=== PATIENT | male | born 1970 | race Caucasian/White ===

== ENCOUNTER 2020-04-19 16:54 | Outpatient (REF) | payer OTHER, SELFPAY | END 2020-04-19 16:55 | disposition home or self-care (01) | LOC: HO.LAB 16:54 | PROVIDERS: Visit Provider Internal Medicine | DX: Z20.828 Contact with and (suspected) exposure to other viral communicable diseases (principal) | CPT/HCPCS: 87635 ==

== ENCOUNTER 2020-05-01 14:20 | Outpatient (REF) | payer OTHER, SELFPAY | END 2020-05-01 14:21 | disposition home or self-care (01) | LOC: HO.LAB 14:20 | PROVIDERS: Visit Provider Internal Medicine | DX: Z20.828 Contact with and (suspected) exposure to other viral communicable diseases (principal) | CPT/HCPCS: C9803; U0003 ==

== ENCOUNTER → 2021-07-03 08:58 | Outpatient (BNVA) | payer OTHER, SELFPAY | PROVIDERS: Visit Provider Physician Assistant Medical | DX: S46.912A Strain of unspecified muscle, fascia and tendon at shoulder and upper arm level, left arm, initial encounter (principal); X50.3XXA Overexertion from repetitive movements, initial encounter | CPT/HCPCS: 73030; 99204 ==

== ENCOUNTER → 2021-07-10 09:09 | Outpatient (BNVA) | payer OTHER, SELFPAY | PROVIDERS: Visit Provider Physician Assistant | DX: S46.912A Strain of unspecified muscle, fascia and tendon at shoulder and upper arm level, left arm, initial encounter (principal); X58.XXXA Exposure to other specified factors, initial encounter | CPT/HCPCS: 99214 ==

== ENCOUNTER → 2021-07-17 10:06 | Outpatient (BNVA) | payer OTHER, SELFPAY | PROVIDERS: Visit Provider Internal Medicine | DX: S46.012A Strain of muscle(s) and tendon(s) of the rotator cuff of left shoulder, initial encounter (principal); X50.3XXA Overexertion from repetitive movements, initial encounter | CPT/HCPCS: 99213 ==

== ENCOUNTER 2021-07-23 07:53 | Outpatient (RCR) | payer OTHER, SELFPAY ==
--- NOTE | 2021-07-23 09:25 | MHC.PT.EP ---
[facility] [place] Office [place] Office [place] Office [address] Kingsley Gomez 140 [facility] [phone] F: [phone] F: [phone] F: [phone] F: [phone] Physical Therapy Plan of Care Date of Evaluation: Date of Surgery: Diagnosis: LEFT ROTATOR CUFF INJURY Assessment: 50 YO MALE REF TO PT W H/O 07/02/21 LEFT SH INJURY. HE IS LEFT HAND DOMINANT, HE WORKS FULL-TIME A [employer] AND HAS BEEN OOW SINCE INJURY- SCHED FOR AN MRI 07/24/21-> OBJECTIVE FINDINGS: (+) LEFT SH APPREHENSION; LIMITED ROM LEFT SH, DECR POST RC/ SCAP STRENGTH, (+) NEER'S SIGN LEFT, AND PAIN IN LEFT ANT SH GIRDLE. 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 PER Pt, HE HAS A Rt UE DEFECT WHICH IS VERY FUNCTIONAL. HE IS A GOOD PT CANDIDATE TO ADDRESS THE ABOVE FINDINGS , MANAGE PAIN AND DEV HEP/ SELF-SX MGMT TECHN . 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 Manual therapy to restore motion and function. Therapeutic exercise to improve strength and flexibility. Neuromuscular re-education for posture and balance. Therapeutic activities to return to functional activities of daily living. Electronically signed by: Latrice Joe PT Please sign and return to therapist. Thank you for your referral.
== END 2021-08-22 14:05 | disposition home or self-care (01) ==
LOC: HO.PT 07:53
PROVIDERS: Visit Provider Physician Assistant Medical
DX: S46.002D Unspecified injury of muscle(s) and tendon(s) of the rotator cuff of left shoulder, subsequent encounter (principal)
CPT/HCPCS: 97110; 97161

== ENCOUNTER 2021-07-24 08:50 | Outpatient (REF) | payer OTHER, SELFPAY ==
--- NOTE | ~2021-07-24 | MR_ITS ---
EXAMINATION: MRI SHOULDER WITHOUT CONTRAST, LEFT CLINICAL INFORMATION: Left shoulder pain with movement and when sleeping. Lifting injury 2 weeks ago. Instability. Evaluate for a labral or rotator cuff tendon tear. COMPARISON: Left shoulder radiographs dated 07/03/2021. TECHNIQUE: Multisequence MR imaging of the left shoulder was obtained without contrast on a high-field strength scanner. FINDINGS: ROTATOR CUFF: Mild supraspinatus and infraspinatus tendinosis. There is insertional intrasubstance partial tearing of the infraspinatus tendon measuring approximately 0.5 x 0.5 cm. No extension to the articular or bursal surfaces. Moderate subscapularis tendinosis with distal articular surface partial tearing measuring 2.6 cm in ML dimension. No muscle atrophy or fatty infiltration. BICEPS: Normal. CORACOACROMIAL ARCH: The undersurface of the acromion is flat with no subacromial spur. Moderate acromioclavicular osteoarthritis. Mild fluid and edema within the subacromial-subdeltoid bursa, consistent with mild bursitis. LABRUM/CAPSULE: Nondisplaced undersurface tear through the posterosuperior labrum. Fraying/tearing throughout the periphery of the superior, posterosuperior, posterior, and inferior labrum. Intact joint capsule. GLENOHUMERAL JOINT/MARROW: Humeral head articular cartilage thinning with an area of bqod-afkk-slbgaafre loss superomedially measuring up to 1.7 cm. Small marginal osteophytes. Small joint effusion. MR/MR shoulder LT wo con IMPRESSION: 1. Mild supraspinatus and infraspinatus tendinosis with insertional intrasubstance partial tearing of the infraspinatus tendon measuring 0.5 x 0.5 cm. 2. Moderate subscapularis tendinosis with distal articular surface partial tearing measuring 2.6 cm in ML dimension. 3. Moderate acromioclavicular osteoarthritis. 4. Mild subacromial-subdeltoid bursitis. 5. Nondisplaced undersurface tear through the posterosuperior labrum with diffuse peripheral labral fraying/tearing. 6. Mild glenohumeral osteoarthritis and small joint effusion.
== END 2021-07-24 08:51 | disposition home or self-care (01) ==
LOC: HO.MRI 08:50
PROVIDERS: Visit Provider Internal Medicine
DX: M25.312 Other instability, left shoulder (principal)
CPT/HCPCS: 73221

== ENCOUNTER → 2021-07-25 09:03 | Outpatient (BNVA) | payer OTHER, SELFPAY | PROVIDERS: Visit Provider Physician Assistant Medical | DX: S46.012A Strain of muscle(s) and tendon(s) of the rotator cuff of left shoulder, initial encounter (principal); S43.432A Superior glenoid labrum lesion of left shoulder, initial encounter; X58.XXXA Exposure to other specified factors, initial encounter | CPT/HCPCS: 99213 ==

== ENCOUNTER 2021-08-08 16:47 | Emergency (ER) | payer MEDICARE, SELFPAY ==
--- NOTE | 2021-08-08 | ECG_ITS ---
Test Reason : CHEST PAIN Blood Pressure : / mmHG Vent. Rate : 099 BPM Atrial Rate : 099 BPM P-R Int : 126 ms QRS Dur : 094 ms QT Int : 344 ms P-R-T Axes : 048 023 032 degrees QTc Int : 441 ms Normal sinus rhythm Normal ECG No previous ECGs available Referred By: Generic ED Physician Electronically Signed By:John Mendoza
--- NOTE | ~2021-08-08 | XR_ITS ---
EXAMINATION: PORTABLE CHEST 1 VIEW CLINICAL INFORMATION: chest pain . COMPARISON: 10/21/2006. TECHNIQUE: Portable frontal view of the chest was obtained. FINDINGS: The lungs are well expanded. No focal infiltrate, effusion, edema, or pneumothorax. Cardiac and mediastinal silhouettes are within normal limits for technique. No acute bony abnormality seen. XR/XR chest 1V IMPRESSION: No evidence of acute disease.
[2021-08-08 16:49] VITALS: BP 151/91; PULSE 103; RESP 15; TEMP 36.7; O2SAT 97; BMI 28.4
[2021-08-08 17:09] LABS: Glucose, Whole Blood 143 mg/dL (60-115)
[2021-08-08 17:11] LABS: MANUAL DIFF FLAG NO
[2021-08-08 17:13] LABS: Basophils Percent Auto 0.1 % (0-2); Hematocrit 43.7 % (42.0-52.0); Hemoglobin 15.2 g/dl (14.0-18.0); Imm Gran Abs Auto 0.03 X10*3/uL (0.00-0.03); Imm Gran Pct Auto 0.3 % (0.0-0.4); Lymphocytes Absolute Auto 1.4 X10*3/uL (1.2-4.9); Mean Corpuscular HGB Conc 34.8 g/dl (31.0-36.0); Mean Corpuscular Hemoglobin 30.6 pg (27.0-33.0); Mean Corpuscular Volume 87.9 fL (80.0-98.0); Mean Platelet Volume 9.2 fL (9.4-12.4); Monocytes Absolute Auto 0.6 X10*3/uL (0.1-1.2); Monocytes Percent Auto 5.8 % (2-11); Neutrophils Absolute Auto 7.7 x10*3/uL (2.0-8.3); Neutrophils Percent Auto 79.8 % (45-73); Platelet Count 263 X10*3/uL (160-400); Red Blood Count 4.97 X10*6/uL (4.60-5.80); White Blood Count 9.6 X10*3/uL (4.8-10.8)
[2021-08-08 17:36] LABS: Alanine Aminotransferase 53 U/L (0-40); Albumin Level 4.4 g/dL (3.5-5.0); Alkaline Phosphatase 86 U/L (39-117); Anion Gap 14 (12-20); Aspartate Amino Transferase 46 U/L (5-37); Bilirubin Total < 0.2 mg/dL (0.0-1.0); Blood Urea Nitrogen 15 mg/dL (9-16); Calcium 9.8 mg/dL (8.4-10.2); Carbon Dioxide 21 mmol/L (22-29); Chloride 105 mmol/L (96-108); Creatinine Clr Calc Pharmacy 87.5; Estimated Glomerular Filt Rate > 60; Glucose Random 141 mg/dL (60-115); Potassium 3.9 mmol/L (3.3-5.1); Sodium 136 mmol/L (135-145); Total Protein 8.4 g/dL (6.5-8.0)
[2021-08-08 17:41] LABS: Troponin-I High Sensitivity 18.2 ng/L (<3.5-35.0)
--- NOTE | 2021-08-09 00:27 | ED_ITS ---
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 Mode of arrival: ambulatory Limitations: no limitations History of Present Illness HPI narrative: lasted 5 minutes states father and brother have heart problems but not entirely sure what they are MD complaint: chest pain (dizziness) Onset (ago): hour(s) (4pm on 08/08/21) Timing of current episode: now resolved Prior episodes: No Onset: during rest Pain location: substernal Pain radiation: none Severity: moderate Quality: heaviness Relieving factors: nothing Exacerbating factors: nothing Associated symptoms: dyspnea and palpitations Treatment prior to arrival: none Related Data Previous Rx's Medication Instructions Recorded aspirin 81 mg tablet,delayed 81 mg PO DAILY #30 tab 08/09/21 release Allergies Allergy/AdvReac Type Severity Reaction Status Date / Time No Known Allergies Allergy Verified 08/08/21 16:54 Review of Systems Review of Systems: Constitutional : No Weight loss, No Fever, No Chills ENT/Mouth : No sore throat, No Rhinorrhea Eyes: No Eye Pain, No Swelling Cardiovascular : pos Chest Pain, pos SOB, no Dyspnea on Exertion, No Orthopnea, No Edema, No Palpitations Respiratory : No Cough, No Sputum Gastrointestinal : no Nausea, No Vomiting, No Diarrhea, No abdominal Pain, No Hematochezia, No Melena Genitourinary : No Dysuria, No Urinary Frequency Musculoskeletal : No joint pain, No Myalgias, No Joint Swelling Skin : No Skin Lesions, No rash Neuro : No Weakness, No Numbness, pos Dizziness, No Headache Psych : No Anxiety/Panic, No Depression Heme/Lymph: No Bruising, No Lymphadenopathy Endocrine : No Polyuria, No Polydipsia All other systems reviewed and are negative [facility] Past Medical History Attestation statement: The following information was validated with the patient. Medical History Patient denies medical problems Social History Social History Patient Tobacco Use Status: Never used Tobacco Advance Directives: No Advance Directives Information Provided: No Physical Exam Vital Signs: Vital Signs: Last Vital Signs Temp 98.0 F 08/08/21 16:49 Pulse 56 08/09/21 02:06 Resp 18 08/09/21 02:06 BP 127/88 08/09/21 02:06 Pulse Ox 96 08/09/21 02:06 BMI result Body Mass Index 28.4 Appearance: Alert. Oriented X3. No acute distress. Eyes: Pupils equal, round and reactive to light. ENT: Pharynx normal. Neck: Normal inspection. Neck supple. CVS: Normal heart rate and rhythm. Pulses normal. Respiratory: No respiratory distress. Breath sounds normal. Abdomen: Soft and non-tender. Skin: Skin warm and dry. Normal skin color. Normal skin turgor. Extremities: No lower extremity edema. No calf ttp Neuro: Oriented X 3. No motor deficit. No sensory deficit. Course Course Course Narrative: ddimer normal repeat trop under ischemic range there is increase but at 9 hour monik is is below ischemic range for males and he has no chest pain now. will repeat EKG unchanged EKG, repeat trop no sig rise at 10 hour monik at this time will send home with precautions and outpatient stress test follow up MDM - Chest Pain MDM Narrative Medical decision making narrative: 50 yo male with no known PMH states he goes to the doctor regularly, he appears fit and works as a [employer] he doesn't smoke - he notes his father and brother have heart issues but not entirely sure what that means. At this time he was cutting wood and noted chest heaviness and dizziness at 4pm lasting 5 minutes. He has no pain now and equal pulses doubt dissection. Will obtain ddimer and troponin x 2, EKG nonischemic in triage. Will need to see a package collector if workup negative given fam hx should have outpatient stress and ECHO Lab Data Result diagrams: 08/08/21 17:04 08/08/21 17:04 Labs: Lab Results 08/08/21 08/08/21 08/08/21 Range/Units 17:00 17:04 17:04 WBC 9.6 (4.8-10.8) X10*3/uL RBC 4.97 (4.60-5.80) X10*6/uL Hgb 15.2 (14.0-18.0) g/dl Hct 43.7 (42.0-52.0) % MCV 87.9 (80.0-98.0) fL MCH 30.6 (27.0-33.0) pg MCHC 34.8 (31.0-36.0) g/dl RDW 12.0 (11.0-16.0) % Plt Count 263 (160-400) X10*3/uL MPV 9.2 L (9.4-12.4) fL Immature Gran % (Auto) 0.3 (0.0-0.4) % Neut % (Auto) 79.8 H (45-73) % Lymph % (Auto) 14.0 L (20-40) % [place] % (Auto) 5.8 (2-11) % Eos % (Auto) 0.0 (0-4) % Baso % (Auto) 0.1 (0-2) % Lymph # (Auto) 1.4 (1.2-4.9) X10*3/uL [place] # (Auto) 0.6 (0.1-1.2) X10*3/uL Eos # (Auto) 0.0 (0.0-0.4) X10*3/uL Baso # (Auto) 0.0 (0.0-0.2) X10*3/uL Abs Immat Gran (auto) 0.03 (0.00-0.03) X10*3/uL Absolute Neuts (auto) 7.7 (2.0-8.3) x10*3/uL Absolute Nucleated RBC 0.000 (0.0-0.012) X10*3/uL Nucleated RBC % (auto) 0.0 (0.0-0.2) /100WBC D-Dimer High Sensitivty NG/ML Sodium 136 (135-145) mmol/L Potassium 3.9 (3.3-5.1) mmol/L Chloride 105 (96-108) mmol/L Carbon Dioxide 21 L (22-29) mmol/L Anion Gap 14 (12-20) BUN 15 (9-16) mg/dL Creatinine 1.07 (0.5-1.4) mg/dL Estim Creat Clear Calc 87.5 Estimated GFR > 60 POC Glucose 143 H (60-115) mg/dL Random Glucose 141 H (60-115) mg/dL Calcium 9.8 (8.4-10.2) mg/dL Total Bilirubin < 0.2 (0.0-1.0) mg/dL AST 46 H (5-37) U/L ALT 53 H (0-40) U/L Alkaline Phosphatase 86 (39-117) U/L Troponin I High Sens (<3.5-35.0) ng/L Total Protein 8.4 H (6.5-8.0) g/dL Albumin 4.4 (3.5-5.0) g/dL 08/08/21 08/09/21 08/09/21 Range/Units 17:04 00:35 00:35 WBC (4.8-10.8) X10*3/uL RBC (4.60-5.80) X10*6/uL Hgb (14.0-18.0) g/dl Hct (42.0-52.0) % MCV (80.0-98.0) fL MCH (27.0-33.0) pg MCHC (31.0-36.0) g/dl RDW (11.0-16.0) % Plt Count (160-400) X10*3/uL MPV (9.4-12.4) fL Immature Gran % (Auto) (0.0-0.4) % Neut % (Auto) (45-73) % Lymph % (Auto) (20-40) % [place] % (Auto) (2-11) % Eos % (Auto) (0-4) % Baso % (Auto) (0-2) % Lymph # (Auto) (1.2-4.9) X10*3/uL [place] # (Auto) (0.1-1.2) X10*3/uL Eos # (Auto) (0.0-0.4) X10*3/uL Baso # (Auto) (0.0-0.2) X10*3/uL Abs Immat Gran (auto) (0.00-0.03) X10*3/uL Absolute Neuts (auto) (2.0-8.3) x10*3/uL Absolute Nucleated RBC (0.0-0.012) X10*3/uL Nucleated RBC % (auto) (0.0-0.2) /100WBC D-Dimer High Sensitivty 182 NG/ML Sodium (135-145) mmol/L Potassium (3.3-5.1) mmol/L Chloride (96-108) mmol/L Carbon Dioxide (22-29) mmol/L Anion Gap (12-20) BUN (9-16) mg/dL Creatinine (0.5-1.4) mg/dL Estim Creat Clear Calc Estimated GFR POC Glucose (60-115) mg/dL Random Glucose (60-115) mg/dL Calcium (8.4-10.2) mg/dL Total Bilirubin (0.0-1.0) mg/dL AST (5-37) U/L ALT (0-40) U/L Alkaline Phosphatase (39-117) U/L Troponin I High Sens 18.2 32.3 D (<3.5-35.0) ng/L Total Protein (6.5-8.0) g/dL Albumin (3.5-5.0) g/dL 08/09/21 Range/Units 02:15 WBC (4.8-10.8) X10*3/uL RBC (4.60-5.80) X10*6/uL Hgb (14.0-18.0) g/dl Hct (42.0-52.0) % MCV (80.0-98.0) fL MCH (27.0-33.0) pg MCHC (31.0-36.0) g/dl RDW (11.0-16.0) % Plt Count (160-400) X10*3/uL MPV (9.4-12.4) fL Immature Gran % (Auto) (0.0-0.4) % Neut % (Auto) (45-73) % Lymph % (Auto) (20-40) % [place] % (Auto) (2-11) % Eos % (Auto) (0-4) % Baso % (Auto) (0-2) % Lymph # (Auto) (1.2-4.9) X10*3/uL [place] # (Auto) (0.1-1.2) X10*3/uL Eos # (Auto) (0.0-0.4) X10*3/uL Baso # (Auto) (0.0-0.2) X10*3/uL Abs Immat Gran (auto) (0.00-0.03) X10*3/uL Absolute Neuts (auto) (2.0-8.3) x10*3/uL Absolute Nucleated RBC (0.0-0.012) X10*3/uL Nucleated RBC % (auto) (0.0-0.2) /100WBC D-Dimer High Sensitivty NG/ML Sodium (135-145) mmol/L Potassium (3.3-5.1) mmol/L Chloride (96-108) mmol/L Carbon Dioxide (22-29) mmol/L Anion Gap (12-20) BUN (9-16) mg/dL Creatinine (0.5-1.4) mg/dL Estim Creat Clear Calc Estimated GFR POC Glucose (60-115) mg/dL Random Glucose (60-115) mg/dL Calcium (8.4-10.2) mg/dL Total Bilirubin (0.0-1.0) mg/dL AST (5-37) U/L ALT (0-40) U/L Alkaline Phosphatase (39-117) U/L Troponin I High Sens 34.3 (<3.5-35.0) ng/L Total Protein (6.5-8.0) g/dL Albumin (3.5-5.0) g/dL ECG Data ECG #1: Attestation: I personally reviewed and interpreted this ECG as follows: ECG interpretation date: 08/09/21 ECG interpretation time: 00:28 Interpretation: Rate: 99 Rhythm: NSR [place]: normal Normal P waves. Normal ASIM. Normal QRS complex. ST T wave : normal no ABIGAIL qTC: normal prior studies: no acute ischemia The study has been interpreted contemporaneously by me. EKG #2 Rate: 59 Rhythm: sinus bradycardia [place]: normal Normal P waves. Normal ASIM. Normal QRS complex. ST T wave : normal no ABIGAIL qTC: normal prior studies: no acute ischemia The study has been interpreted contemporaneously by me. Discharge Plan Discharge Clinical Impression: Chest pain Qualifiers: Chest pain type: unspecified Qualified Code(s): R07.9 - Chest pain, unspecified Patient Disposition: Home, Self-Care Instructions: Chest Pain (ED) Additional Instructions: return to ED for any worsening symptoms or concerns no strenuous exercise until you see a package collector. please take 81mg aspirin daily. if you experience chest pain seek medical care. no lulu ejercicio extenuante hasta que александр a un cardi?logo. tome 81 mg de aspirina al d?a. si experimenta dolor en el pecho busque atenci?n m?dica Prescriptions: New aspirin 81 mg tablet,delayed release (DR/EC) 81 mg PO DAILY Qty: 30 0RF Referrals: John Mendoza MD [Physician] - 1 week (prueba de esfuerzo ambulatoria) Stand Alone Forms: Work/School Release Print Language: Jamaican
[2021-08-09 00:39] VITALS: BP 127/95; PULSE 71; RESP 16; O2SAT 99
[2021-08-09 00:47] LABS: D Dimer High Sensitivity 182 NG/ML
[2021-08-09 01:02] LABS: Troponin-I High Sensitivity 32.3 ng/L (<3.5-35.0)
--- NOTE | 2021-08-09 01:07 | ECG_ITS ---
Test Reason : DIZZINESS Blood Pressure : / mmHG Vent. Rate : 059 BPM Atrial Rate : 059 BPM P-R Int : 142 ms QRS Dur : 096 ms QT Int : 414 ms P-R-T Axes : 025 032 034 degrees QTc Int : 409 ms Sinus bradycardia Incomplete right bundle branch block Borderline ECG When compared with ECG of 08-AUG-2021 16:55, Vent. rate has decreased BY 40 BPM Referred By: Fe Dalal Electronically Signed By:John Mendoza
[2021-08-09 02:06] VITALS: BP 127/88; PULSE 56; RESP 18; O2SAT 96
[2021-08-09 02:40] LABS: Troponin-I High Sensitivity 34.3 ng/L (<3.5-35.0)
== END 2021-08-09 03:11 | disposition home or self-care (01) ==
PROVIDERS: Emergency Provider Emergency Medicine
DX: R07.9 Chest pain, unspecified (principal)
CPT/HCPCS: 36415; 71045; 80053; 82947; 84484; 85025; 85379; 93005; 99283; 99284

== ENCOUNTER 2022-08-18 09:10 | Emergency (ER) | payer MEDICARE, SELFPAY ==
[2022-08-18 09:12] VITALS: BP 128/75; PULSE 75; RESP 18; TEMP 36.5; O2SAT 96; BMI 30.4
--- NOTE | 2022-08-18 09:46 | ED_ITS ---
HPI - Back Pain/Injury General Chief Complaint: Back Pain/Injury Stated Complaint: Lower back pain Time Seen by Provider: 08/18/22 09:24 Source: patient Mode of arrival: ambulatory History of Present Illness HPI Narrative: 51-year-old male with no significant past medical history presenting to the ED complaining of acute onset atraumatic bilateral lower back pain x 4 days. Reports pain radiates up and down spine, worse with movement, position changes. Reports pain started after sitting working on something. Denies known injury, trauma, fall, numbness, tingling, weakness, urinary incontinence/retention, fever. Taking Tylenol without relief MD elicited complaint: back pain Related Data Previous Rx's Medication Instructions Recorded aspirin 81 mg tablet,delayed 81 mg PO DAILY #30 tabs 08/09/21 release Allergies Allergy/AdvReac Type Severity Reaction Status Date / Time No Known Allergies Allergy Verified 08/08/21 16:54 Review of Systems Review of Systems: Constitutional: No Fever, No Chills ENT/Mouth: No Ear Pain, No Nasal Congestion, No sore throat, No Rhinorrhea, No Swallowing Difficulty Cardiovascular: No Chest Pain, No SOB Respiratory: No Cough, No Sputum, No Wheezing Gastrointestinal: No Nausea, No Vomiting, No Diarrhea, No Abdominal pain Genitourinary: No Dysuria, No Hematuria, No Urinary Incontinence/retention, No Flank Pain Musculoskeletal: + joint pain, No Myalgias, No Joint Swelling Skin: No Skin Lesions, No rash Neuro: No Weakness, No Numbness, No Paresthesias Yes all other systems are reviewed and are negative Constitutional: Constitutional: Reports as per HPI Neurologic: Denies Sensory deficit (Neuro) [facility] Past Medical History Attestation statement: The following information was validated with the patient. Medical History Patient denies medical problems Social History Social History Patient Tobacco Use Status: Never used Tobacco Advance Directives: No Advance Directives Information Provided: No Physical Exam Vital Signs: Vital Signs: Last Vital Signs Temp 97.7 F 08/18/22 09:12 Pulse 75 08/18/22 09:12 Resp 18 08/18/22 09:12 BP 128/75 08/18/22 09:12 Pulse Ox 96 08/18/22 09:12 O2 Del Method 08/18/22 09:12 BMI result Body Mass Index 30.4 Const: General: cooperative, healthy appearing and no acute distress Orientation/consciousness: patient oriented x3 Limitations: no limitations HEENT: Head: Yes normal to inspection and Yes atraumatic Ears: hearing grossly normal bilaterally General nose exam: Normal external nose present Face and sinus: Yes normal facial exam Eyes: General: appearance normal, both eyes and all related structures EOM: EOMs intact bilaterally Neck: Neck: Yes normal visual inspection and Yes no meningeal signs Resp: Effort & Inspection: normal respiratory effort and no respiratory distress Cardio: Rate: regular rate Heart sounds: S1 normal heart sound present and S2 normal heart sound present GI: Inspection: Yes normal to inspection Palpation (GI): Soft to palpation, nontender, no guarding and not rigid : General: Yes no CVA tenderness Back/Spine/Pelvis: Other: No midline thoracic/lumbar spinous tenderness/step-off or deformity. + bilateral lumbar MSK and paraspinal spasming/tenderness to palpation reproducing subjective complaint Back: no CVA tenderness Skin: Rashes: no rashes Wounds: no wounds Neuro: Other: Strength intact throughout. No saddle anesthesia. Sensation intact to light touch. Neurovascular intact distally General: patient oriented x3, gait normal, tone normal, moves all extremities, no meningeal signs and no focal motor deficits Gait exam (Neuro): Normal gait present Motor exam (neuro): 5/5 motor strength present throughout Sensory Exam: No Sensory deficit (Neuro) Extrem: General: Yes normal to inspection Course Course Course Narrative: --1202--patient reports sx improvement after meds given in the ED Results discussed with patient including worrisome signs and symptoms and strict return precautions, and when to return to the emergency department. They verbalized understanding and feel safe for discharge at this time. Medications Administered Discontinued Medications Generic Name Dose Route Start Last Admin Trade Name Freq PRN Reason Stop Dose Admin Cyclobenzaprine HCl 10 mg 08/18/22 10:22 08/18/22 10:55 Cyclobenzaprine Hcl 10 Mg Tablet PO 08/18/22 10:23 10 mg ONCE ONE Administration Ketorolac Tromethamine 30 mg 08/18/22 10:22 08/18/22 10:55 Ketorolac Tromethamine 30 Mg/Ml Vial IM 08/18/22 10:23 30 mg ONCE ONE Administration Lidocaine 1 patch 08/18/22 10:22 08/18/22 10:56 Lidocaine 4 % Patch Adh..Patch TRANSDERMA 08/18/22 10:23 1 patch ONCE ONE Administration Protocol Medical Decision Making Medical Decision Making MDM Narrative: 51-year-old male with no significant past medical history presenting to the ED complaining of acute onset atraumatic bilateral lower back pain x 4 days. On exam vital signs stable, NAD, nontoxic appearing, no midline spinous tenderness throughout, palpable lumbar muscle spasming/paraspinal pain, no red flag symptoms. Concern for MSK pain/strain. Lower suspicion for pyelo/renal stone, cauda equina cord compression, or epidural abscess Plan: Pain management, reassess, PCP follow-up Please refer to course for remaining clinical decision making, interpretation of labs/imaging results, and discussions with consultants and/or family members. Differential Diagnosis Differential Diagnoses: The differential diagnosis associated with the presentation includes as above Independent Historian Clinical information obtained from an independent historian. History obtained from or confirmed by: Spouse Prescription Management I considered prescription management with: Pain Medication Discharge Plan Discharge Clinical Impression: Strain of lumbar region Patient Disposition: Home, Self-Care Instructions: Acute Low Back Pain (ED) Additional Instructions: Your pain is likely musculoskeletal Flexeril is a muscle relaxer, take at night as it makes you drowsy, do not drive, drink alcohol, or operate machinery while taking it Naproxen as an anti-inflammatory / pain medication, take with food Lidoderm patches are numbing patches, apply to painful area In addition take Tylenol at home If symptoms persist or worsen, pain becomes unbearable, you developed urinary retention or incontinence, or weakness return to the ED Prescriptions: No Action aspirin 81 mg tablet,delayed release (DR/EC) 81 mg PO DAILY Qty: 30 0RF Referrals: Physician,Unknown J [Primary Care Provider] - Stand Alone Forms: Work/School Release
[2022-08-18] MEDS: Cyclobenzaprine HCl 10 MG TABLET PO (10:55)
[2022-08-18] MEDS: Ketorolac Tromethamine 30 MG/ML VIAL IM (10:55)
[2022-08-18] MEDS: Lidocaine 4 % Patch ADH..PATCH 1 PATCH TRANSDERMA (10:56)
== END 2022-08-18 12:12 | disposition home or self-care (01) ==
PROVIDERS: Emergency Provider Emergency Medicine
DX: S39.012A Strain of muscle, fascia and tendon of lower back, initial encounter (principal); X58.XXXA Exposure to other specified factors, initial encounter; Y93.9 Activity, unspecified; Y92.9 Unspecified place or not applicable; Y99.9 Unspecified external cause status
CPT/HCPCS: 96372; 99283; 99284; J1885